=== PATIENT | female | born 1980 | race Caucasian/White ===

== ENCOUNTER 2025-04-10 10:46 | Emergency (ER) | payer BC, SELFPAY ==
[2025-04-10 10:46] VITALS: BMI 23.6
[2025-04-10 10:53] VITALS: BP 154/110
[2025-04-10 11:30] VITALS: BP 117/87
--- NOTE | 2025-04-10 11:51 | ED.GENMED ---
History of Present Illness
General
Chief Complaint: Abdominal Symptoms
Source: patient
Exam Limitations: none
Time Seen by Provider: 04/10/25 11:44
Nursing documentation reviewed up to this point in time: agreed with
History of Present Illness
History of Present Illness:
The patient is a 44-year-old female who presents with nausea, vomiting, and headache following a day of intense physical activity related to moving. She reports engaging in physical exertion from [employer] until late at night. The patient notes
that by the end of the day, her muscles felt extremely fatigued to the point where she could no longer walk. she experienced a severe headache throughout the night, waking multiple times. Upon awakening at 5:00 AM, she began vomiting, which
occurred around four times. After taking ondansetron at 9:00 AM, she has not vomited since, though she continues to feel nauseous. Her attempts to drink fluids result in significant nausea and gastric pain. She denies fever but reports cold chills
and significant generalized weakness, impacting her ability to stand and think clearly. She also notes darker than usual urine but denies urinary burning, frequency, or urgency.
Past History
Past History
ED Past Medical History: Other ( Anterior uveitis and ankylosing spondylitis, flares occasionally)
ED Past Surgical History: Appendectomy
Review of Systems
Review of Systems
Allergies reviewed?: Yes
All Other Systems: ROS reviewed and negative except as documented in HPI and ROS
Constitutional: Reports fatigue; Denies fever
Respiratory: Denies trouble breathing
Cardiac: Denies chest pain
ABD/GI: Reports nausea and vomiting; Denies abdominal pain, diarrhea or constipated
: Reports dark urine; Denies dysuria, frequency or difficulty voiding
Skin: Reports no symptoms
Neurological: Reports headache
Phy Exam
Physical Exam
Physical Exam:
GENERAL: No acute distress. A&Ox3.
CONSTITUTIONAL: Afebrile.
EYES: clear, conjunctivae normal
ENMT: moist mucus membranes, Pharynx nl
RESPIRATORY: Regular respirations, nonlabored, lungs clear.
CARDIOVASCULAR: Regular rate and rhythm, no murmurs, no rubs.
GI: Soft, nontender, normal BS
MUSCULOSKELETAL: Moves with ease. Well perfused.
SKIN: Warm, dry, pink
PSYCH: Normal mood and affect. Well kept, interactive and appropriate
NEUROLOGIC: Awake, alert and oriented. No focal neurological deficits
Course
Orders/Labs/Results
Orders:
Orders
04/10/25 11:50
Test Result ONCE
04/10/25 11:51
0.9% Sodium Chloride 1000 ml [Nss] 1,000 ml IV BOLUS
04/10/25 11:52
Ketorolac [Toradol] 15 mg IV NOW STA
04/10/25 12:06
CPK Isoenzyme Urgent
Complete Blood Count/With Diff Urgent
Comprehensive Metabolic Panel Urgent
HCG, Serum Qualitative Screen Urgent
Lipase Urgent
04/10/25 12:26
Urinalysis Reflex To Culture Urgent
Date Specimen was Collected: 04/10/25
Time Specimen was Collected: 12:25
Urine Microscopic Reflex Cult Urgent
Urine Culture Urgent
PARI Source: U
Specimen Description:
Date Specimen was Collected: 04/10/25
Time Specimen was Collected: 12:25
04/10/25 13:45
Ondansetron Injectable [Zofran] 4 mg IV NOW STA
Abnormal Lab Results
04/10/25 04/10/25
12:06 12:26
MPV 10.9 H fL
(7.4-10.4)
Absolute Neuts (auto) 7.4 H 10^3/uL
(1.4-6.5)
Absolute Lymphs (auto) 0.9 L 10^3/uL
(1.2-3.4)
Neutrophils % 86.5 H %
(42.2-75.2)
Lymphocytes % 10.3 L %
(20.5-51.1)
Chloride 109 H mmol/L
(98-107)
Carbon Dioxide 19 L mmol/L
(22-30)
Glucose 112 H mg/dl
(70-99)
Leukocyte Esterase Rfl 2+ A
(Negative)
Urine Bacteria (Reflex) Few A
(Negative)
04/10/25 12:06
04/10/25 12:06
Vital Signs
Initial and Last Documented VS:
Initial Vital Signs
Temp Pulse Resp BP Pulse Ox
98.5 F 95 16 154/110 98
04/10/25 10:53 04/10/25 10:53 04/10/25 10:53 04/10/25 10:53 04/10/25 10:53
Last Documented Vital Signs
Temp Pulse Resp BP Pulse Ox
97.9 F 79 16 109/75 100
04/10/25 14:01 04/10/25 14:01 04/10/25 14:01 04/10/25 14:01 04/10/25 14:01
MDM/Problems Addressed
Differential Diagnosis Includes:
Dehydration, rhabdomyolysis, gastroenteritis
MDM/Problems Addressed:
The patient is a 44-year-old female who presents with nausea, vomiting, and headache following a day of intense physical activity related to moving. She reports engaging in physical exertion from [employer] until late at night. The patient notes
that by the end of the day, her muscles felt extremely fatigued to the point where she could no longer walk. she experienced a severe headache throughout the night, waking multiple times. Upon awakening at 5:00 AM, she began vomiting, which
occurred around four times. After taking ondansetron at 9:00 AM, she has not vomited since, though she continues to feel nauseous. Her attempts to drink fluids result in significant nausea and gastric pain. She denies fever but reports cold chills
and significant generalized weakness, impacting her ability to stand and think clearly. She also notes darker than usual urine but denies urinary burning, frequency, or urgency.
There has been no fever or diarrhea.
Problem list:
Acute Problems:
- Nausea and vomiting
- Headache
- Muscle fatigue
Plan:
- Administer intravenous fluids
- Administer intravenous non-steroidal anti-inflammatory medication (ketorolac) for headache relief
- Continue ondansetron as needed for nausea control
- Follow-up with primary care provider for continued evaluation and management
1:30 PM:
CBC, CMP with no clinically significant abnormality
Lipase normal
hCG negative
CPK normal
UA negative
After IV Toradol and 1 L IV fluids patient is feeling better, still little nauseous, IV Zofran ordered. Rx for Zofran sent to her pharmacy
She is very appreciative of the care
Patient is stable for discharge
*Pulse Oximetry
SaO2: 99
Oxygen Mode of Delivery: Room air
Patient hypoxic: no
*Critical Care Note
Total Time (30-74mins, 75-104mins- exclusive of procedures): Not Applicable
ED Attending Note
-
Portions of this chart may have been created with voice recognition software.� Occasional wrong word or��sound alike� substitutions may have occurred due to the inherent limitations of voice recognition software.
Discharge Plan
Departure
Patient Disposition: Home (Routine Discharge)
Date of Disposition: 04/10/25
Time of Disposition: 13:45
Patient with high blood pressure during this ER visit?: No
Condition: Good
Discharge Problem:
Gastritis, Physical exhaustion
Instructions: Gastritis - Discharge instructions, Fatigue - ED discharge instructions
Prescriptions:
New
ondansetron 4 mg tablet,disintegrating
4 mg PO Q8H PRN (Reason: nausea and vomiting) 5 Days Qty: 14 0RF
Referrals:
UNKNOWN - PT DOES,NOT KNOW [Family Provider]
Activity Restrictions/Additional Instructions:
As we discussed, nothing worrisome in your workup here today. Drink plenty of fluids.
I sent a prescription to your pharmacy for Zofran to use as needed for nausea and vomiting.
Interventions
Interventions:
*Risk Screen - Suicide Last Done: 04/10/25 10:53
*Neglect/Abuse Screening Last Done: 04/10/25 10:53
*ED- Fall Risk Assessment Last Done: 04/10/25 11:31
*ED COVID-19 Vaccine History Last Done: 04/10/25 11:31
*Nursing Disposition Last Done: 04/10/25 14:04
RI-Fucvim-Fxrbkvklwn Assessment Last Done: 04/10/25 11:34
Discharge Date and Time
Discharge Date/Time: 04/10/25 14:05
Print Language: GERMAN
[2025-04-10 12:00] VITALS: BP 123/76
[2025-04-10] MEDS: TORADOL 15 MG IV (12:02)
[2025-04-10] MEDS: NSS 1000 IV (12:03)
[2025-04-10 12:23] LABS: Hematocrit 38.6 % (37.0-47.0); Hemoglobin 13.2 g/dL (12.0-16.0); Mean Corp Hgb Conc. 34.2 g/dL (33.0-37.0); Mean Corpuscular Volume 83.9 fL (81.0-99.0); Nucleated Red Blood Cells % 0 %; Platelet Count 255 10^3/uL (130-400); Red Cell Dist. Width 13.1 % (11.5-14.5)
[2025-04-10 12:34] LABS: HCG, Serum Qualitative Screen Negative
[2025-04-10 12:39] LABS: ALT (SGPT) 13 U/L (0-35); AST (SGOT) 19 U/L (14-36); Albumin 4.6 g/dl (3.5-5.0); Alkaline Phosphatase 51 U/L (38-126); Blood Urea Nitrogen 14 mg/dl (7-17); Calcium 9.5 mg/dl (8.4-10.2); Carbon Dioxide 19 mmol/L (22-30); Chloride 109 mmol/L (98-107); Estimated Creatinine Clearance 93 ml/min; Glucose 112 mg/dl (70-99); Lipase 98 U/L (23-300); Potassium 4.2 mmol/L (3.5-5.1); Sodium 137 mmol/L (135-145); Total Protein 7.1 g/dl (6.3-8.2); eGFR > 60.00
[2025-04-10 13:08] LABS: CKMB 0.8 ng/ml (0.0-3.4)
[2025-04-10 13:24] LABS: Urine Character Cloudy (Clear)
[2025-04-10] MEDS: ZOFRAN 4 MG IV (13:52)
[2025-04-10 13:54] VITALS: BP 109/75
[2025-04-10 14:01] VITALS: BP 109/75
[2025-04-10 14:16] LABS: Urine Squamous Cell 0-2 /LPF (Few); Urine Urothelial Cell 0-2 /LPF (FEW)
[2025-04-10 14:34] LABS: Urine Red Blood Cell 0-2 /HPF (0-2); Urine White Cell 0-2 /HPF (0-5)
== END 2025-04-10 14:05 | disposition home or self-care (01) ==
LOC: EMR 10:46
PROVIDERS: Registered Nurse; EMERGENCY PHYSICIAN Emergency Medicine
DX: K29.00 Acute gastritis without bleeding (principal); R53.83 Other fatigue; R11.2 Nausea with vomiting, unspecified; R51.9 Headache, unspecified; R68.83 Chills (without fever); R53.1 Weakness; T73.3XXA Exhaustion due to excessive exertion, initial encounter; X58.XXXA Exposure to other specified factors, initial encounter; M45.9 Ankylosing spondylitis of unspecified sites in spine
CPT/HCPCS: 99284; 96374; 96375; 96361; 80053; 81003; 81015; 82550; 82553; 83690; 84703; 85025; 87086